=== PATIENT | female | born 1990 | race Caucasian/White ===

== ENCOUNTER 2025-02-16 10:25 | Inpatient (IN) | payer OTHER ==
[2025-02-16 10:58] VITALS: BMI 28.6
[2025-02-16] MEDS ORDERED: BENZONATATE 200 MG CAPSULE PO PRN (11:22)
[2025-02-16] MEDS ORDERED: MAG HYDROX/AL HYDROX/SIMETH 30 ML UNIT-DOSE CUP PO PRN (11:22)
[2025-02-16] MEDS ORDERED: IBUPROFEN 400 MG TABLET (FP) PO PRN (11:22)
[2025-02-16] MEDS ORDERED: IBUPROFEN 600 MG TABLET (FP) PO PRN (11:22)
[2025-02-16] MEDS ORDERED: BENZOCAINE/MENTHOL (CHLORASEPTIC ) LOZENGE MM PRN (11:22)
[2025-02-16] MEDS ORDERED: LOPERAMIDE HCL 2 MG CAPSULE PO PRN (11:22)
[2025-02-16] MEDS ORDERED: BISMUTH SUBSALICYLATE 262 MG/15 ML BTL PO PRN (11:22)
[2025-02-16] MEDS ORDERED: DICYCLOMINE HCL 10 MG CAPSULE PO PRN (11:22)
[2025-02-16] MEDS ORDERED: ONDANSETRON *ODT* 4 MG TABLET SL PRN (11:22)
[2025-02-16] MEDS ORDERED: ACETAMINOPHEN 325 MG TABLET (FP) PO PRN (11:22)
[2025-02-16] MEDS ORDERED: MAGNESIUM HYDROX 2400MG/30ML ORAL SUSPENSION 30 ML CUP PO PRN (11:22)
[2025-02-16] MEDS ORDERED: guaiFENesin 600 MG TABLET.ER (FP) PO PRN (11:22)
[2025-02-16] MEDS ORDERED: NALOXONE (NARCAN) HCL 4 MG/0.1 ML SPRAY NS PRN (11:22)
[2025-02-16] MEDS ORDERED: POLYETHYLENE GLYCOL (HEALTHYLAX) 3350 17 GM PACKET PO PRN (11:22)
[2025-02-16] MEDS: diazePAM 5 MG TABLET PO PRN (14:38)
[2025-02-16] MEDS: diazePAM 5 MG TABLET PO SCH (17:32)
[2025-02-16] MEDS: hydrOXYzine PAMOATE 25 MG CAPSULE (FP) PO PRN (22:07)
[2025-02-16] MEDS: MELATONIN 5 MG TABLETS PO SCH (22:07)
[2025-02-16] MEDS: THIAMINE 100 MG TABLET PO SCH (22:07)
[2025-02-17 09:02] VITALS: RESP 16
[2025-02-17] MEDS: PRENATAL VITAMINS W/ FOLIC ACID TABLET (FP) PO SCH (10:02)
[2025-02-17] MEDS: METHOCARBAMOL 500 MG TABLET PO PRN (10:02)
[2025-02-17 11:22] LABS: HEMATOCRIT 45.2 % (34.1-44.9); HEMOGLOBIN 15.4 g/dL (11.2-15.7); MCHC 34.1 g/dl (32.2-35.5); MEAN CELL VOLUME 96.4 fl (79.4-94.8); MEAN PLT VOLUME 10.7 fl (9.4-12.3); PLATELET COUNT 363 x10^3/uL (182-369); RDW 11.6 % (12.1-16.8)
[2025-02-17 11:25] LABS: POTASSIUM 3.8 mmol/L (3.5-5.1)
[2025-02-17 11:39] LABS: ALBUMIN 4.3 g/dl (3.4-5.0); CALCIUM 10.3 mg/dL (8.5-10.1)
[2025-02-17 11:42] LABS: CREATININE 0.9 mg/dL (0.55-1.3)
[2025-02-17 11:44] LABS: BILIRUBIN,TOTAL 0.8 mg/dL (0.2-1)
[2025-02-17 12:14] LABS: TOT PROT 7.4 g/dl (6.4-8.2)
[2025-02-17 15:24] VITALS: BP 125/90; PULSE 80; TEMP 97.1
[2025-02-18] MEDS ORDERED: diazePAM 5 MG TABLET PO SCH (06:00)
[2025-02-19] MEDS ORDERED: diazePAM 5 MG TABLET PO SCH (06:00)
[2025-02-20] MEDS ORDERED: diazePAM 5 MG TABLET PO ONE (06:00)
== END 2025-02-17 15:55 | disposition left against medical advice (07) | DRG 770 ==
LOC: YASAS 10:25 → Y3N 12:26
PROVIDERS: ADMIT Family Medicine; ATTEND Family Medicine
PROC: HZ2ZZZZ Detoxification Services for Substance Abuse Treatment (ICD-10-PCS; principal; 2025-02-16)
DX: F10.230 Alcohol dependence with withdrawal, uncomplicated (principal); F12.20 Cannabis dependence, uncomplicated; F32.A Depression, unspecified; F64.0 Transsexualism
CPT/HCPCS: 36415; 80053; 80305; 80307; 81025; 85027; 86780; 93005; 93010